=== PATIENT | female | born 1955 | race Caucasian/White ===

== ENCOUNTER 2021-01-01 11:13 | Emergency (ER) | payer OTHER ==
[2021-01-01] MEDS ORDERED: TORAdol 30 mg Injection IV ONE (11:30)
--- NOTE | 2021-01-01 11:37 | ERPHSYRPT ---
- History of Present Illness Time Seen by Provider: 01/01/21 11:24 Source: patient Exam Limitations: no limitations Patient Subjective Stated Complaint: pt here for rigth rib and mid back pain sudden onset today after coughing. she has had runny nose and cough for a couple days Triage Nursing Assessment: pt alert, face mask in place, resp lobored at times, she is thrashing in bed, moaning out loud Physician History: The patient is a 65-year-old male with a past medical history significant for low back pain with sciatica, anxiety, who presents with a chief complaint of upper back pain/right subscapular pain and right-sided chest pain. Onset reportedly was this morning. She reportedly coughed which precipitated the pain. The pain was described as a sharp pain that radiates from her upper back to the right side of her chest. The pain is constant and reportedly severe. She reports been coughing up clear-colored sputum. She denies any chest pain prior to the onset of her pain this morning. The pain worsens whenever she takes a deep breath. She denies any lung pathology but reportedly smokes. She does not take control and denies any history of PE, DVT, malignancy or any recent immobilization or surgeries. Timing/Duration: today Associated Symptoms: shortness of breath, cough, chest pain, No nausea, No vomiting, No abdominal pain, No syncope Allergies/Adverse Reactions: No Known Drug Allergies Allergy (Unverified 01/01/21 11:24) Home Medications: Atorvastatin Calcium [Lipitor] 1 ea DAILY 01/01/21 [History] Bupropion HCl [Wellbutrin Sr] 1 ea BID 01/01/21 [History] Cyclobenzaprine HCl 10 mg [Cyclobenzaprine 10 MG] 1 ea DAILY 01/01/21 [History] Meloxicam [Mobic] 1 ea DAILY 01/01/21 [History] Hx Influenza Vaccination/Date Given: No Hx Pneumococcal Vaccination/Date Given: No Immunizations Up to Date: Yes Travel Risk - International Travel Have you traveled outside of the country in past 3 weeks: No - Vaccine Status Have you recieved a Covid-19 vaccination: No - Review of Systems Constitutional: No Fever, No Chills Ears, Nose, & Throat: Nose Congestion, No Ear Pain, No Ear Discharge Respiratory: Cough, Dyspnea, No Cyanosis, No Stridor, No Wheezing Cardiac: Chest Pain, No Edema, No Palpitations, No Syncope, No PND Abdominal/Gastrointestinal: No Abdominal Pain, No Nausea, No Vomiting, No Diarrhea Genitourinary Symptoms: No Symptoms Musculoskeletal: No Symptoms Skin: No Symptoms Neurological: No Symptoms Psychological: Anxiety All Other Systems: Reviewed and Negative - Past Medical History Pertinent Past Medical History: No - Past Surgical History Past Surgical History: Yes Female Surgical History: Hysterectomy, Section, Tubal Ligation, Other Other Surgical History: ovarion cyst - Social History Smoking Status: Current every day smoker Exposure to second hand smoke: Yes Drug Use: none Patient Lives Alone: Yes - Female History Hx Last Menstrual Period: post Hx Now: No - Nursing Vital Signs Nursing Vital Signs: Initial Vital Signs Pulse Rate 72 01/01/21 11:13 Respiratory Rate 26 H 01/01/21 11:13 Blood Pressure 167/109 01/01/21 11:13 O2 Sat by Pulse Oximetry 100 01/01/21 11:13 Pain Scale Pain Intensity [] 10 Pain Intensity 10 - Physical Exam General Appearance: no apparent distress, mild distress Eye Exam: PERRL/EOMI, eyes nml inspection Ears, Nose, Throat Exam: normal ENT inspection Neck Exam: normal inspection Respiratory Exam: normal breath sounds, chest tenderness, lungs clear, airway intact, No respiratory distress, No diminished breath sounds Cardiovascular Exam: regular rate/rhythm, normal heart sounds, normal peripheral pulses, capillary refill <2 sec, No murmur, No friction rub, No gallop, No tachycardia, No edema Gastrointestinal/Abdomen Exam: soft, No tenderness, No distention, No mass Back Exam: normal inspection, No CVA tenderness, No vertebral tenderness, No point tenderness Extremity Exam: normal inspection, No pedal edema, No swelling, No tenderness Neurologic Exam: alert, oriented x 3, cooperative, other (Anxious appearing) Skin Exam: normal color, warm, dry, No rash SpO2 Interpretation: normal SpO2: 100 O2 Delivery: Room Air - Course Nursing assessment & vital signs reviewed: Yes EKG Interpreted by Me: RATE, Sinus Rhythm, Left [place] Deviation, NORMAL QRS, Other (No evidence of acute myocardial ischemia or injury pattern. 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 01/01/21 11:30 Active IV Insertion STAT Care 01/01/21 11:29 Active CHEST 2 VIEWS (PA AND LAT) Stat Exams 01/01/21 11:30 Completed CHEST WITH CONTRAST [CT] Stat Exams 01/01/21 12:51 Completed BMP Stat Lab 01/01/21 12:00 Completed CBC W DIFF Stat Lab 01/01/21 11:29 Completed D-DIMER QUANTITATIVE Stat Lab 01/01/21 11:29 Completed NT PRO BNP Stat Lab 01/01/21 12:00 Completed TROPONIN Q3H Lab 01/01/21 12:00 Completed TROPONIN Q3H Lab 01/01/21 14:40 Received TROPONIN Q3H Lab 01/01/21 17:30 Ordered TROPONIN Q3H Lab 01/01/21 20:30 Ordered TROPONIN Q3H Lab 01/01/21 23:30 Ordered Medication Summary Discontinued Medications Generic Name Dose Route Start Last Admin Trade Name Freq PRN Reason Stop Dose Admin Hydrocodone Bitart/Acetaminophen 2 tab 01/01/21 12:17 01/01/21 12:26 Uvalda 5/325 Mg PO 01/01/21 12:18 2 tab STAT ONE Administration Hydrocodone Bitart/Acetaminophen Confirm 01/01/21 12:25 Uvalda 5/325 Mg Administered 01/01/21 12:26 Dose 2 tab .ROUTE .STK-MED ONE Ketorolac Tromethamine 15 mg 01/01/21 11:30 01/01/21 11:56 Toradol 30 Mg Injection IV 01/01/21 11:31 15 mg STAT ONE Administration Ketorolac Tromethamine Confirm 01/01/21 11:54 Toradol 30 Mg Injection Administered 01/01/21 11:55 Dose 30 mg .ROUTE .STK-MED ONE Lab/Rad Data: Laboratory Result Diagrams 01/01/21 11:29 01/01/21 12:00 Laboratory Results 01/01/21 01/01/21 01/01/21 Range/Units 12:00 12:00 11:29 WBC (4.0-10.5) K/mm3 RBC (4.1-5.4) M/mm3 Hgb (12.0-16.0) gm/dl Hct (35-47) % MCV (78-100) fl MCH (26-32) pg MCHC (32-36) g/dl RDW (11.5-14.0) % Plt Count (150-450) K/mm3 MPV (7.5-11.0) fl Gran % (36.0-66.0) % Eos # (Auto) (0-0.5) Absolute Lymphs (auto) (1.0-4.6) Absolute Monos (auto) (0.0-1.3) Lymphocytes % (24.0-44.0) % Monocytes % (0.0-12.0) % Eosinophils % (0.00-5.0) % Basophils % (0.0-0.4) % Absolute Granulocytes (1.4-6.9) Basophils # (0-0.4) D-Dimer 546 H* (215-500) ng/mL Sodium 137 (137-145) mmol/L Potassium 3.7 (3.5-5.1) mmol/L Chloride 99 (98-107) mmol/L Carbon Dioxide 27 (22-30) mmol/L Anion Gap 15.0 (5-15) MEQ/L BUN 12 (7-17) mg/dL Creatinine 0.75 (0.52-1.04) mg/dL Estimated GFR > 60.0 ML/MIN Glucose 124 H (74-106) mg/dL Calcium 9.6 (8.4-10.2) mg/dL Troponin I < 0.012 (0.000-0.034) ng/mL NT-Pro-B Natriuret Pep 194 (0-900) pg/mL 01/01/21 Range/Units 11:29 WBC 9.0 (4.0-10.5) K/mm3 RBC 4.44 (4.1-5.4) M/mm3 Hgb 13.9 (12.0-16.0) gm/dl Hct 42.1 (35-47) % MCV 94.8 (78-100) fl MCH 31.3 (26-32) pg MCHC 33.0 (32-36) g/dl RDW 13.6 (11.5-14.0) % Plt Count 282 (150-450) K/mm3 MPV 12.0 H (7.5-11.0) fl Gran % 77.2 H (36.0-66.0) % Eos # (Auto) 0.09 (0-0.5) Absolute Lymphs (auto) 1.23 (1.0-4.6) Absolute Monos (auto) 0.71 (0.0-1.3) Lymphocytes % 13.7 L (24.0-44.0) % Monocytes % 7.9 (0.0-12.0) % Eosinophils % 1.0 (0.00-5.0) % Basophils % 0.2 (0.0-0.4) % Absolute Granulocytes 6.93 H (1.4-6.9) Basophils # 0.02 (0-0.4) D-Dimer (215-500) ng/mL Sodium (137-145) mmol/L Potassium (3.5-5.1) mmol/L Chloride (98-107) mmol/L Carbon Dioxide (22-30) mmol/L Anion Gap (5-15) MEQ/L BUN (7-17) mg/dL Creatinine (0.52-1.04) mg/dL Estimated GFR ML/MIN Glucose (74-106) mg/dL Calcium (8.4-10.2) mg/dL Troponin I (0.000-0.034) ng/mL NT-Pro-B Natriuret Pep (0-900) pg/mL - Progress Progress: improved Progress Note: 01/01/21 12:16 INSPECT reviewed and there is no evidence prescribed controlled substances. 01/01/21 12:55 The patient's D-dimer is mildly elevated. I will proceed with CT chest with contrast to eval for PE and/or aortic dissection. 01/01/21 15:01 The patient was reassessed to find that she was resting comfortably in bed. I updated her with her work-up findings and her likely cause of pain which could be a pulled muscle in the upper back or muscle spasm. I will discharge her home with instructions take Tylenol and tizanidine for pain and to otherwise follow- up with her primary care provider for further evaluation and management. - Departure Departure Disposition: Home Clinical Impression: Upper back pain on right side, Muscle spasm of back Condition: Good Critical Care Time: No Referrals: TOMMY RON [Primary Care Provider] - Instructions: Muscle Spasms (DC), Upper Back Pain (DC) Additional Instructions: Please take Tylenol as needed for any ongoing pain. You can take up to 1000 mg every 6-8 hours as needed. You can purchase this medication [id number]. Please take this medication as instructed on the medication bottle. Prescriptions: Tizanidine HCl 2 mg PO Q8HPRN PRN 5 Days #20 tablet PRN Reason: Pain
[2021-01-01] MEDS ORDERED: TORAdol 30 mg Injection ONE (11:54)
--- NOTE | 2021-01-01 11:54 | XRAY ---
Exam: Two-view chest from 01/01/2021. Comparison: None. Indication: Upper back and chest pain beginning today in 65-year-old female. Findings: Upright PA and lateral chest films are submitted for evaluation. The heart size and contour are normal. The yared and mediastinal structures appear unremarkable. There is adequate inflation of the lungs. No air space infiltrates: Pulmonary vascular congestion/redistribution, pneumothorax, or pleural fluid is seen. A tiny bright soft tissue density is seen within the posterior lateral aspect of the left breast. Correlate clinically regarding the possibility of a biopsy clip. Slight convexity of mid thoracic spine toward the right seen. The bones are demineralized. Mild degenerative changes are seen within the mid thoracic spine. Impression: 1. No acute cardiopulmonary disease is seen. 2. Tiny bright density within posterior lateral aspect of the left breast which might represent a biopsy clip or other foreign body.
[2021-01-01] MEDS ORDERED: NORCO 5/325 MG PO ONE (12:17)
[2021-01-01] MEDS ORDERED: NORCO 5/325 MG ONE (12:25)
[2021-01-01 12:54] LABS: Absolute Neutrophil Ct (ANC) 6.93 (1.4-6.9); BASOPHIL % 0.2 % (0.0-0.4); Basophil (Absolute #) 0.02 (0-0.4); Eosinophil (Absolute #) 0.09 (0-0.5); Hematocrit 42.1 % (35-47); Hemoglobin 13.9 gm/dl (12.0-16.0); Lymphocyte (Absolute #) 1.23 (1.0-4.6); Lymphocytes % 13.7 % (24.0-44.0); Mean Cell Volume 94.8 fl (78-100); Mean Corpuscular Hemoglobin 31.3 pg (26-32); Monocyte (Absolute #) 0.71 (0.0-1.3); Monocytes % 7.9 % (0.0-12.0); Neutrophil % 77.2 % (36.0-66.0); Platelet Count 282 K/mm3 (150-450); Red Blood Count 4.44 M/mm3 (4.1-5.4); Red Cell Distribution Width 13.6 % (11.5-14.0)
[2021-01-01 12:58] LABS: BLOOD UREA NITROGEN 12 mg/dL (7-17); CHLORIDE 99 mmol/L (98-107); Calcium 9.6 mg/dL (8.4-10.2); Carbon Dioxide 27 mmol/L (22-30); Creatinine 1 0.75 mg/dL (0.52-1.04); EST GLOMERULAR FILTRATION RATE > 60.0 ML/MIN; Glucose 124 mg/dL (74-106); NT PRO BNP 194 pg/mL (0-900); Potassium 3.7 mmol/L (3.5-5.1); SODIUM 137 mmol/L (137-145)
[2021-01-01 14:16] VITALS: PULSE 60
--- NOTE | 2021-01-01 14:55 | XRAY ---
Exam: CT of the chest with IV contrast per PE protocol from 01/01/2021. CTDI: 12.80 mGy Comparison: Two-view chest series from 01/01/2021. Indication: Elevated d-dimer in 65-year-old female; evaluate for PE. Technique: Post-IV contrast axial images were obtained through the chest, using the PE protocol during automated IV injection of 100 cc of Isovue-370 contrast material. Reconstructed coronal and sagittal images were created and reviewed. The pulmonary arteries enhance well revealing no filling defects to suggest clot/pulmonary emboli. Neither do I see evidence of thoracic aortic aneurysm or aortic dissection. Some vascular calcification is seen within the distal descending thoracic aorta. The heart size is normal without pericardial effusion. I believe there is a small retrocardiac hiatal hernia present. The thyroid gland is diffusely enlarged and has some substernal extension. There appears to be a 1 cm in diameter oval-shaped low-attenuation nodule within the lower pole of the left lobe. This might represent a thyroid adenoma. No abnormal mediastinal or perihilar lymphadenopathy is seen. The peripheral lung stoner reveal mild diffuse centrilobular emphysematous changes. I also note some mild posterior compression atelectatic changes. No air space infiltrates or suspicious pulmonary nodule is seen. There is no pneumothorax or pleural effusion. The adrenal glands are partially seen within the upper abdomen appear grossly unremarkable. I believe there is a 6.5 mm in diameter cyst within the anterior aspect of the left hepatic lobe on axial images #277 and #278. The proximal abdominal aorta is of normal diameter. The skeleton reveals no acute fracture or aggressive bone lesion. Moderate thoracic spondylosis is seen within the mid and lower thoracic spine. There is a slight lower mid dorsal kyphosis. Impression: 1. I see no evidence of acute pulmonary embolus, thoracic aortic aneurysm, or thoracic aortic dissection. 2. Diffuse enlargement of the thyroid gland consistent with goiter. I also note a 1 cm in diameter low-attenuation lesion within the inferior pole of the left thyroid lobe. The thyroid gland extends into a substernal position. 3. Small hiatal hernia. 4. Centrilobular emphysematous changes are seen within both lung stoner. I also note mild posterior compression atelectatic changes within each lung field. 5. 6.5 mm in diameter cyst within anterior aspect of the left hepatic lobe.
[2021-01-01 15:22] VITALS: BP 195/109; O2SAT 98
== END 2021-01-01 15:18 | disposition home or self-care (01) ==
LOC: ED 11:13
DX: M54.9 Dorsalgia, unspecified (principal); M62.830 Muscle spasm of back; R07.9 Chest pain, unspecified; R06.02 Shortness of breath; Z79.899 Other long term (current) drug therapy
CPT/HCPCS: 36000; 36415; 71046; 71260; 80048; 83880; 84484; 85025; 85379; 93005; 93041; 96374; 99284; J1885; A9270-GY